=== PATIENT | female | born 1960 | race Caucasian/White ===

== ENCOUNTER → 2016-10-10 | Outpatient (CLI) | payer MEDICARE, OTHER ==
[~2016-10-10] MED LIST: ADVAI250I PO; ALBU6.7H INH; CYAN1000P IM; ERGO50000 PO; HYDR-3580 PO; PRED20 PO; PROT40TA PO; SYNT88TA PO; XANA1TAB6 PO
--- NOTE | 2016-10-11 11:00 | EKG ---
Date Performed: 10/10/2016 Time Performed: 07:33:33 PTAGE: 55 years EKG: SINUS BRADYCARDIA BORDERLINE ECG PREVIOUS TRACING : 07/07/2014 09.50 DOCTOR: Adrian Monterroso Interpretating Date/Time 10/11/2016 10:57:33
== END ==
LOC: HCAV 07:25
DX: I20.9 Angina pectoris, unspecified (principal)
CPT/HCPCS: 93005

== ENCOUNTER 2017-07-09 12:08 | Emergency (ER) | payer OTHER, MEDICARE ==
[~2017-07-09] VITALS: Ht 180.3 cm; Wt 58.0 kg
[2017-07-09 12:10] VITALS: BP 142/77; PULSE 96; RESP 20; TEMP 98; O2SAT 97
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
[2017-07-09] MEDS ORDERED: ROBA500T PO (13:37)
[2017-07-09] MEDS ORDERED: IBUP-232 PO (13:37)
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
--- NOTE | 2017-07-10 23:31 | EKG ---
Date Performed: 07/09/2017 Time Performed: 12:26:05 PTAGE: 56 years EKG: Sinus rhythm NORMAL ECG PREVIOUS TRACING : 10/10/2016 07.33 Compared to prior tracing no significant change DOCTOR: Judson Jimenez Interpretating Date/Time 07/10/2017 23:30:19
== END 2017-07-09 13:49 | disposition home or self-care (01) ==
LOC: NEPD 12:08
DX: S16.1XXA Strain of muscle, fascia and tendon at neck level, initial encounter (principal); M19.90 Unspecified osteoarthritis, unspecified site; F41.9 Anxiety disorder, unspecified; E78.00 Pure hypercholesterolemia, unspecified; J44.9 Chronic obstructive pulmonary disease, unspecified; E07.9 Disorder of thyroid, unspecified; V43.52XA Car driver injured in collision with other type car in traffic accident, initial encounter; Z86.19 Personal history of other infectious and parasitic diseases; Z79.51 Long term (current) use of inhaled steroids
CPT/HCPCS: 93005; 99284